=== PATIENT | male | born 1965 | race Caucasian/White ===

== ENCOUNTER 2016-05-03 10:54 | Emergency (ER) | payer OTHER ==
[~2016-05-03] VITALS: Ht 172.7 cm; Wt 79.4 kg
[2016-05-03 11:15] LABS: ABSOLUTE NEUTROPHILS 6.3 thou/uL (1.4-8.2); BASOPHILS 0.2 % (0.0-2.0); HEMATOCRIT 44.5 % (42.0-52.0); HEMOGLOBIN 14.6 gm/dL (14.0-18.0); LYMPHOCYTES 14.3 % (24.0-44.0); MANUAL DIFF NO; MCH 29.8 pg (26.0-34.0); MCHC 32.9 % (28.0-37.0); MCV 90.7 fL (80.0-100.0); MONOCYTES 5.4 % (1.0-8.0); PLATELET COUNT 233 thou/uL (150-400); POLYS 78.1 % (36.0-66.0); RBC 4.91 mil/uL (4.50-6.00); RDW 13.7 % (10.5-14.5)
[2016-05-03] MEDS ORDERED: COZAAR 25 MG TA25 M1 PO (11:21)
[2016-05-03] MEDS ORDERED: PAXIL10 MG PO (11:21)
[2016-05-03] MEDS ORDERED: CLONAZEPAM 0.50.5 M1 PO (11:21)
[2016-05-03] MEDS ORDERED: ADDERALL 10 MG10 MG PO (11:22)
[2016-05-03 11:27] LABS: CALCIUM 6.7 mg/dL (8.5-10.1); CREATININE 0.8 mg/dL (0.6-1.3)
[2016-05-03 11:32] LABS: ALBUMIN 2.8 g/dL (3.4-5.0); TOTAL BILIRUBIN 0.5 mg/dL (<0.1-1.0); TOTAL PROTEIN 5.2 g/dL (6.4-8.2)
[2016-05-03] MEDS ORDERED: NORCO 5-325 TA1 EACH PO (13:23)
[2016-05-03] MEDS ORDERED: ONDANSETRON HCL4 M2 PO (13:23)
[2016-05-03 13:47] LABS: URINE BILIRUBIN NEGATIVE (Negative); URINE BLOOD 2+ (Negative); URINE COLOR YELLOW; URINE GLUCOSE-RANDOM* NEGATIVE (Negative); URINE KETONES NEGATIVE (Negative); URINE LEUKOCYTES-REFLEX NEGATIVE (Negative); URINE PROTEIN (DIPSTICK) NEGATIVE (Negative); URINE SPECIFIC GRAVITY <= 1.005 (1.003-1.035); URINE UROBILINOGEN 0.2 E.U./dl (0.2-1.0)
[2016-05-03 14:12] VITALS: BP 113/66
[2016-05-03 14:41] LABS: CASTS None Seen /LPF (None Seen); SQUAMOUS None Seen /LPF (0-3); URINE RBC 3-10 Few /HPF (0-2); URINE WBC-REFLEX None Seen /HPF (0-5)
[2016-05-03 14:42] LABS: CRYSTALS None Seen /LPF (None Seen)
== END 2016-05-03 14:29 | disposition home or self-care (01) ==
LOC: ER 10:54
PROVIDERS: Emergency Medicine
DX: N20.0 Calculus of kidney (principal); E87.6 Hypokalemia; F32.9 Major depressive disorder, single episode, unspecified; Z88.1 Allergy status to other antibiotic agents; Z88.0 Allergy status to penicillin; Z88.6 Allergy status to analgesic agent; F17.210 Nicotine dependence, cigarettes, uncomplicated; F10.99 Alcohol use, unspecified with unspecified alcohol-induced disorder